=== PATIENT | female | born 1975 | race Caucasian/White ===

== ENCOUNTER → 2017-10-19 | Outpatient (CLI) | END | disposition home or self-care (01) ==

== ENCOUNTER → 2017-10-26 | Outpatient (CLI) | END | disposition home or self-care (01) ==

== ENCOUNTER 2018-09-07 09:12 | Emergency (ER) | payer BC ==
[~2018-09-07] VITALS: Ht 162.6 cm; Wt 63.0 kg
[2018-09-07] MEDS ORDERED: SOD CHLORIDE 0.9% 1,000 ML IV STA (09:19)
[2018-09-07] MEDS ORDERED: KETOROLAC 30 MG INJ IV STA (09:19)
[2018-09-07 09:27] VITALS: Ht 162.6 cm; Wt 63.0 kg
[2018-09-07] MEDS ORDERED: SPIR50TA PO (10:42)
[2018-09-07 11:15] VITALS: BP 138/80; PULSE 78; RESP 18
[2018-09-07] MEDS ORDERED: ONDANSETRON 4 MG INJ IV STA (11:31)
[2018-09-07] MEDS ORDERED: morphine 4 MG/ML VIAL IV STA (11:31)
[2018-09-07] MEDS ORDERED: CIPR500T4 PO (12:17)
[2018-09-07] MEDS ORDERED: HYDR-4011 PO (12:18)
[2018-09-07] MEDS ORDERED: DOCU-144 PO (12:18)
[2018-09-07] MEDS ORDERED: IBUP800T48 PO (12:18)
--- NOTE | 2018-09-10 06:39 | ERD ---
ER Documentation Chief Complaint Chief Complaint Flank pain started this morning HPI This is a 42-year-old female with a past medical history that presents to the emergency department complaining of a sudden onset of right flank pain. She stated it began this morning. She went to work but the pain still persisted. Progressively worsened. It was intermittent and a sharp shooting pain. She denies any hematuria. No frequency urgency or dysuria. No fevers or shaking no chills. No chest pain no no shortness of breath. No pain in the lower abdomen. ROS All systems reviewed and are negative except as per history of present illness. Medications Home Meds Active Scripts Ibuprofen* (Motrin*) 800 Mg Tab, 800 MG PO Q6H PRN for PAIN AND OR ELEVATED TEMP, #30 TAB Prov:STEPH FLETCHER MD 09/07/18 Docusate Sodium* (Colace*) 100 Mg Capsule, 100 MG PO TID, #30 CAP Prov:STEPH FLETCHER MD 09/07/18 Hydrocodone/Acetaminophen ([place] 5-325 Tablet) 1 Each Tablet, 1 TAB PO Q6H PRN for PAIN, #20 TAB Prov:STEPH FLETCHER MD 09/07/18 Ciprofloxacin Hcl* (Ciprofloxacin Hcl*) 500 Mg Tablet, 500 MG PO BID for 10 Days, TAB Prov:STEPH FLETCHER MD 09/07/18 Reported Medications Spironolactone* (Aldactone*) 50 Mg Tablet, 50 MG PO DAILY, #30 TAB 09/07/18 Allergies Allergies: Coded Allergies: cefazolin (Verified Allergy, Unknown, rash, 09/07/18) PMhx/Soc Medical and Surgical Hx: pt denies Medical Hx, pt denies Surgical Hx Hx Alcohol Use: No Hx Substance Use: No Hx Tobacco Use: No Smoking Status: Never smoker Physical Exam Vitals Vital Signs Date Temp Pulse Resp B/P (MAP) Pulse Ox O2 O2 Flow FiO2 Time Delivery Rate 09/07/18 97.7 78 18 138/80 99 Room Air 11:15 (99) 09/07/18 97.7 67 18 130/83 97 09:27 (99) Physical Exam Const: No acute distress Head: Atraumatic Eyes: Normal Conjunctiva ENT: Normal External Ears, Nose and Mouth. Neck: Full range of motion. No meningismus. Resp: Clear to auscultation bilaterally Cardio: Regular rate and rhythm, no murmurs Abd: Soft, non tender, non distended. Normal bowel sounds Skin: No petechiae or rashes Back: No midline or flank tenderness Ext: No cyanosis, or edema Neur: Awake and alert Psych: Normal Mood and Affect Result Diagram: 09/07/1849 09/07/1849 Results 24 hrs Laboratory Tests Test 09/07/18 09:31 09/07/18 09:41 09/07/18 09:49 Urine Color YELLOW Urine Clarity CLOUDY Urine pH 5.0 Urine Specific [place] 1.028 Urine Ketones NEGATIVE mg/dL Urine Nitrite NEGATIVE mg/dL Urine Bilirubin NEGATIVE mg/dL Urine Urobilinogen NEGATIVE mg/dL Urine Leukocyte Esterase NEGATIVE Dmitriy/ul Urine Microscopic RBC 107 /HPF Urine Microscopic WBC 5 /HPF Urine Squamous Epithelial Cells FEW /HPF Urine Bacteria FEW /HPF Urine Mucus MANY /HPF Urine Hemoglobin 3+ mg/dL Urine Glucose NEGATIVE mg/dL Urine Total Protein NEGATIVE mg/dl POC Beta HCG, Qualitative NEGATIVE White Blood Count 9.0 10^3/ul Red Blood Count 4.31 10^6/ul Hemoglobin 13.2 g/dl Hematocrit 39.3 % Mean Corpuscular Volume 91.2 fl Mean Corpuscular Hemoglobin 30.6 pg Mean Corpuscular 33.6 g/dl Hemoglobin Concent Red Cell Distribution Width 11.9 % Platelet Count 335 10^3/UL Mean Platelet Volume 9.3 fl Immature Granulocytes % 0.200 % Neutrophils % 82.4 % Lymphocytes % 12.4 % Monocytes % 4.1 % Eosinophils % 0.3 % Basophils % 0.6 % Nucleated Red Blood Cells % 0.0 /100WBC Immature Granulocytes # 0.020 10^3/ul Neutrophils # 7.5 10^3/ul Lymphocytes # 1.1 10^3/ul Monocytes # 0.4 10^3/ul Eosinophils # 0.0 10^3/ul Basophils # 0.1 10^3/ul Nucleated Red Blood Cells # 0.0 10^3/ul Sodium Level 142 mmol/L Potassium Level 4.5 mmol/L Chloride Level 107 mmol/L Carbon Dioxide Level 25 mmol/L Anion Gap 10 Blood Urea Nitrogen 17 mg/dl Creatinine 0.62 mg/dl Est Glomerular Filtrat > 60 mL/min Rate mL/min Glucose Level 119 mg/dl Calcium Level 9.4 mg/dl Total Bilirubin 0.5 mg/dl Direct Bilirubin 0.00 mg/dl Indirect Bilirubin 0.5 mg/dl Aspartate Amino 22 IU/L Transf (AST/SGOT) Alanine 23 IU/L Aminotransferase (ALT/SGPT) Alkaline Phosphatase 79 IU/L Total Protein 8.0 g/dl Albumin 4.3 g/dl Globulin 3.70 g/dl Albumin/Globulin Ratio 1.16 Current Medications Medications Dose Sig/Nicola Start Time Status Last (Trade) Ordered Route PRN Stop Time Admin Dose Reason Admin Sodium 1,000 ml @ Q1H STAT 09/07/18 DC 09/07/18 Chloride 1,000 mls/hr IV 09: 10:10 09/07/18 10:18 Ketorolac 30 mg ONCE STAT 09/07/18 DC 09/07/18 Tromethamine IV 09: 10:10 (Toradol) 09/07/18 09:22 Morphine 4 mg ONCE STAT 09/07/18 DC 09/07/18 Sulfate IV 11:31 12:10 (morphine) 09/07/18 11:32 Ondansetron 4 mg ONCE STAT 09/07/18 DC 09/07/18 HCl (Zofran IV 11:31 12:10 Inj) 09/07/18 11:32 Procedures/MDM The patient presented to the emergency department with flank pain. My differential diagnosis included but was not limited to spinal origins of the pain such as fracture, osteomyelitis, epidural abscess, neoplasm, spondylolishtesis, discogenic, cauda equina syndrome or musculoligamentous. Non spinal causes such as AAA, upper UTI, renal colic, aortic dissection, abdominal neoplasm were also considered as an etiology into their pain. The patient's physical exam findings did appear to be a result of a likely kidney stone. Therefore obtain an ultrasound of the kidneys and the patient had mild right hydronephrosis. At this time I discussed with the patient further imaging and she did agree to undergo a CT scan. The CT scan without contrast of the pelvis was reviewed by the radiologist and myself and indicate the followin. ENLARGED RIGHT KIDNEY WITH RIGHT-SIDED HYDROURETERONEPHROSIS. 4.2 MM STONE IS NOTED WITHIN THE BLADDER ADJACENT TO THE RIGHT UVJ. FINDINGS ARE MOST CONSIST ENT WITH A RECENTLY PASSED STONE. 2. Multiple left-sided nonobstructing renal stones. The largest measures up to 3.4 mm. No evidence of obstructive uropathy. 3. No evidence of bowel obstruction. The appendix is within normal limits. The patient had no renal failure on ancillary laboratory work. The patient initially was given IV fluids Toradol. However her pain did not improve. Therefore at this time she was given intravenous morphine and Zofran. She felt comfortable being discharged home with analgesic medication. The patient was discharged home in fair condition. They were instructed to return to the emergency department at any time if there was any worsening of their condition. The patient stated they would follow up with their PCP in the next 24-48 hours to initiate a suitable medication regimen under the care of their PCP as well as to allow their PCP to monitor any drug reactions. The patient was discharged home with prescriptions after they gave informed consent to the new medication. They were also fully informed by myself on the adverse effects and adverse drug interactions in order to provide adequate safeguards to prevent possible adverse reactions to medications. Departure Diagnosis: Primary Impression: Flank pain Additional Impression: Nephrolithiasis Condition: Fair Patient Instructions: Kidney Stone W/ Colic STEPH FLETCHER MD Sep 10, 2018 06:39
== END 2018-09-07 13:17 | disposition home or self-care (01) ==
LOC: E/R 09:12
DX: N20.0 Calculus of kidney (principal)
CPT/HCPCS: 74176; 76775; 80053; 81001; 81025; 85025; 87086; J1885; J2270; J2405; J7030; 96374; 96375